=== PATIENT | male | born 1960 | race Caucasian/White ===

== ENCOUNTER → 2021-06-18 | Outpatient (CLI) | payer OTHER | LOC: EMI 08:05 | DX: G40.209 Localization-related (focal) (partial) symptomatic epilepsy and epileptic syndromes with complex partial seizures, not intractable, without status epilepticus (principal); Q21.2 Atrioventricular septal defect; I78.0 Hereditary hemorrhagic telangiectasia | CPT/HCPCS: 70544; 70553; A9577 ==